=== PATIENT | male | born 1955 | race Caucasian/White ===

== ENCOUNTER → 2024-01-14 14:28 | Outpatient (REF) | payer OTHER, SELFPAY | LOC: RCS 14:28 | PROVIDERS: ATTENDING PHYSICIAN Internal Medicine Cardiovascular Disease; FAMILY PHYSICIAN Nurse Practitioner Family | DX: I10 Essential (primary) hypertension (principal); R06.02 Shortness of breath; I25.10 Atherosclerotic heart disease of native coronary artery without angina pectoris | CPT/HCPCS: 93306 ==

== ENCOUNTER → 2025-01-10 15:35 | Outpatient (REF) | payer OTHER, SELFPAY | LOC: MRI 3T 15:35 | PROVIDERS: ATTENDING PHYSICIAN Specialist; FAMILY PHYSICIAN Nurse Practitioner Family | DX: C61 Malignant neoplasm of prostate (principal) | CPT/HCPCS: 72197; A9575 ==

== ENCOUNTER → 2025-05-31 07:03 | Outpatient (REF) | payer OTHER, SELFPAY | LOC: HWRCS 07:03 | PROVIDERS: ATTENDING PHYSICIAN Internal Medicine Cardiovascular Disease; FAMILY PHYSICIAN Nurse Practitioner Family | DX: I10 Essential (primary) hypertension (principal); Z95.5 Presence of coronary angioplasty implant and graft | CPT/HCPCS: 78452; 93017; A9500 ==

== ENCOUNTER 2025-06-13 06:06 | Day surgery (SDC) | payer OTHER, SELFPAY ==
[2025-06-13] VITALS (14 sets, daily range): BP systolic 115–137; BP diastolic 61–71; BMI 26.5
[2025-06-13 06:45] LABS: Glucose - Point of Care 136 mg/dl (70-99)
[2025-06-13] MEDS: NSS 252 ML IV (07:28)
--- NOTE | 2025-06-13 08:16 | ITS.CL.CATH ---
Blood Splatter Analyst - Catheterization
Cardiac Catheterization
Procedure Report:
CARDIAC CATHETERIZATION REPORT
Date of Procedure: 06/13/2025
Referring: Sebastian Tyler M.D.
INDICATION: Coronary artery disease, abnormal stress test.
PROCEDURE:
1. Left heart catheterization.
2. Coronary angiography.
A total of 28 minutes of procedural/moderate sedation was utilized. An independent curator medical museum was present to assist with and help manage the patient's level of consciousness and physiologic status.
ACCESS:
1. 6 [place] right radial artery using a modified Seldinger technique delete the.
CATHETERS:
1. 5 [place] JR4.
2. 5 [place] JL 3.5.
HEMODYNAMIC DATA
Weight (kg): 83.9
AO (s/d/x, mmHg): 113/64/84
LV (s/x mmHg): 113/12
AV gradient (x, mmHg): None.
LEFT VENTRICULOGRAPHY: Not performed.
CORONARY ANGIOGRAPHY
Dominance: Right.
Left Main: Normal size, bifurcating vessel. There is no coronary artery disease.
LAD: Normal size vessel giving rise to 2 diagonals. There are luminal irregularities in the proximal vessel. A stent is present in the mid vessel immediately after the origin of the first diagonal with a 70% in-stent restenosis lesion.
The vessel is chronically totally occluded in its distal margin immediately after the origin of D2. The apical LAD is supplied by collaterals from the second diagonal.
Ramus: Congenitally absent.
Circumflex: Medium size, nondominant vessel that is essentially a single obtuse marginal supplying the lateral wall. There is a 30% lesion in the ostium of the vessel.
RCA: Large size, dominant vessel with a large posterolateral arcade that supplies the entire inferior and inferolateral wall. There are luminal irregularities in the mid vessel.
INTERVENTION(S)
None.
Closure Device: Vascular band.
Radiation (mGy): 354.46
DAP (cm2.Gy): 32.6759
Fluoroscopy time (minutes): 2.4
CONCLUSIONS
1. Right dominant circulation with luminal irregularities in the mid RCA, a 30% lesion in the ostium of the circumflex, luminal irregularities in the proximal LAD, a 70% ISR lesion in the prior mid LAD stent and a chronic total occlusion of the
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
2. Normal filling pressures (LVEDP = 12 mmHg at 83.9 kg).
RECOMMENDATIONS:
1. Expectant management after cardiac catheterization via right radial approach.
2. Limited weight bearing on the right wrist for one week.
3. Given the absence of symptoms (questioned multiple times), the best course of action at this time is medical management with aggressive secondary prevention and antiplatelet therapy.
4. Continue optimizing coronary artery disease risk factors.
5. Were symptoms to develop, consider initiation of beta-blockers and calcium channel blockers.
6. Stable for outpatient follow-up.
Copy to: Sebastian Tyler M.D., ANJALI Vazquez
Jaret Carlos, DO, FACC, FACP
== END 2025-06-13 11:05 | disposition home or self-care (01) ==
LOC: CATH 06:06
PROVIDERS: ATTENDING PHYSICIAN Internal Medicine Cardiovascular Disease; FAMILY PHYSICIAN Nurse Practitioner Family; OTHER PHYSICIAN Internal Medicine Cardiovascular Disease
DX: I25.10 Atherosclerotic heart disease of native coronary artery without angina pectoris (principal); R94.39 Abnormal result of other cardiovascular function study; Z79.02 Long term (current) use of antithrombotics/antiplatelets; I25.82 Chronic total occlusion of coronary artery; T82.855A Stenosis of coronary artery stent, initial encounter; Y83.8 Other surgical procedures as the cause of abnormal reaction of the patient, or of later complication, without mention of misadventure at the time of the procedure; I10 Essential (primary) hypertension; E11.9 Type 2 diabetes mellitus without complications; E78.5 Hyperlipidemia, unspecified; Z85.46 Personal history of malignant neoplasm of prostate
CPT/HCPCS: 99152; 99153; 82962; 93458; C1769; C1894; Q9967